=== PATIENT | female | born 1975 | race Caucasian/White ===

== ENCOUNTER 2024-10-07 16:32 | Emergency (ER) | payer MEDICARE ==
[~2024-10-07] VITALS: Ht 177.8 cm; Wt 81.6 kg
--- NOTE | 2024-10-07 17:17 | HMCIMG ---
Exam Type: FOOT COMP 3+VWS RT Clinical Information: pain Comparison: None Findings: The bone examination is unremarkable. No fractures or dislocations are seen. No radiopaque foreign bodies are noted. Soft tissues are preserved. IMPRESSION: Normal examination.
--- NOTE | 2024-10-07 17:24 | HMCIMG ---
Exam Type: ANKLE COMP 3VWS RT Clinical Information: fracture Comparison: None Findings and impression: Medial malleolar fracture is seen with mild displacement and rotation and overlying soft tissue swelling. No other abnormalities are noted.
[2024-10-07] MEDS ORDERED: KETO10TA2 PO (17:31)
--- NOTE | 2024-10-07 17:44 | ERN ---
General Chief Complaint: FOOT INJURY/PAIN Stated Complaint: RIGHT FOOT PAIN Time Seen by MD: 17:05 Time Seen by Midlevel: 17:05 Source: patient History of Present Illness Initial Comments This is a 49-year-old female presenting to the emergency department with right ankle pain. Patient states that last night she took a wrong step and fell backwards from the last step of her stairs. Denies any head injury or loss of consciousness. She noticed an increase in swelling and pain to the area so she decided to report to the ER today. No other complaints reported at this time Allergies: Coded Allergies: Sulfa (Sulfonamide Antibiotics) (Unverified Allergy, Unknown, 10/07/24) ibuprofen (Unverified Allergy, Unknown, 10/07/24) Home Meds Active Scripts Ketorolac Tromethamine (Ketorolac Tromethamine) 10 Mg Tablet, 1 TAB PO TID for pain for 5 Days, #15 TAB 0 Refills Prov:ENRIQUE JOHNSTON 10/07/24 Past Medical History Past Medical History: Other Medical History Other: BACK PROBLEMS Past Surgical History: Other Surgical History Other: BACK SURGERY, NASAL SURGERY ROS Dictation CONSTITUTIONAL: Negative except for HPI HEAD/FACE: Negative except for HPI EENT: Negative except for HPI RESPIRATORY: Negative except for HPI GASTROINTESTINAL/ABDOMINAL: Negative except for HPI GENITOURINARY: Negative except for HPI MUSCULOSKELETAL: Negative except for HPI INTEGUMENTARY: Negative except for HPI NEUROLOGICAL/PSYCH: Negative except for HPI HEMATOLOGIC/LYMPHATIC: Negative except for HPI All Systems Negative, Except as noted above. 13 point review of systems assessed and all negative except for above. Physical Exam Physical Exam Dictation PHYSICAL EXAM: GENERAL: alert,, awake oriented x 3 HEENT: EOMI, Sclera non icteric, moist mucosa NECK: Supple, no JVD, trachea midline LUNGS: Clear breath sounds bilaterally. No wheezes HEART: Regular rate and rhythm. Normal S1 and S2, without murmurs ABD: Abdomen soft, nontender. Bowel sounds present EXT: Tenderness over the right medial malleolus, full range motion of all five digits of the right foot, 2+ DP, PT pulses, sensation is intact, there was normal capillary refill of less than 2 seconds NEURO: Alert and oriented to person, follows commands MDM MDM: 49-year-old female presenting to the ER status post mechanical ground level fall. X-ray of the right ankle reveals a medial malleolar fracture. This was discussed with the patient. She was requesting a Toradol injection. I discussed an allergy listed in her chart of ibuprofen however she states she only gets small amounts of diarrhea with this medication. She does report taking ketorolac in the past and his agreeable with the Toradol injection in the ER. She was also requesting a prescription for Toradol. The patient will be splinted with a posterior long leg splint with stirrup. The right lower extremity is neurovascularly intact. Patient was advised to follow up with clinical pharmacy specialist outpatient within the next 24-48 hours and she agrees. All questions have been answered Differential diagnosis: Fracture, dislocation, contusion, sprain There are no social concerns with this patient. Prescription drug management Prescriptions will include: Toradol Medical management and examination interpretation discussions were had by me with other qualified healthcare professionals as indicated for the patient's care. ED Course Orders Procedure Category Date Status Time Foot Comp 3+Vws Rt RAD 10/07/24 Resulted 16:36 Ankle Comp 3vws Rt RAD 10/07/24 Resulted 17:05 *Nursing CPOE 10/07/24 Transmitted Communication: 17:22 Ketorolac PHA 10/07/24 Complete Tromethamine 30mg/Ml 17:30 Current Medications Medications (Trade) Dose Ordered Sig/Michelle Route PRN Reason Start Time Stop Time Status Last Admin Dose Admin Ketorolac Tromethamine (toRADol) 30 mg ONCE ONCE IM 10/07/24 17:30 10/07/24 17:31 DC Vital Signs Date Time Temp Pulse Resp B/P (MAP) Pulse Ox O2 Delivery O2 Flow Rate FiO2 10/07/24 16:33 98.4 98 18 143/89 99 Room Air [place] [address] [address] IMAGING REPORT Signed PATIENT: ADELA MALIN MR#: [id number] : 1975 SEX: F AGE: 49 LOCATION: [facility] ORDER 04 STATUS: REG ER REPORT#: [id number] SERVICE 04 REASON: fracture ORDERING PHYSICIAN: YESENIA BACH DO PROCEDURE: [id number] - ANKLE COMP 3VWS RT Exam Type: ANKLE COMP 3VWS RT Clinical Information: fracture Comparison: None Findings and impression: Medial malleolar fracture is seen with mild displacement and rotation and overlying soft tissue swelling. No other abnormalities are noted. DICTATED BY: BLAYNE CAR MD DATE: 10/07/241720 ELECTRONICALLY SIGNED BY: BLAYNE CAR MD DATE: 10/07/241723 [place] [address] [id number] IMAGING REPORT Signed PATIENT: ADELA MALIN MR#: [id number] : 1975 SEX: F AGE: 49 LOCATION: [facility] ORDER 36 STATUS: REG ER REPORT#: [id number] SERVICE 35 REASON: pain ORDERING PHYSICIAN: YESENIA BACH DO PROCEDURE: FT 3VW RT - FOOT COMP 3+VWS RT Exam Type: FOOT COMP 3+VWS RT Clinical Information: pain Comparison: None Findings: The bone examination is unremarkable. No fractures or dislocations are seen. No radiopaque foreign bodies are noted. Soft tissues are preserved. IMPRESSION: Normal examination. DICTATED BY: BLAYNE CAR MD DATE: 10/07/241710 ELECTRONICALLY SIGNED BY: BLAYNE CAR MD DATE: 10/07/241716 DX & DISP Disposition: Discharge Departure Impression: Primary Impression: Medial malleolar fracture Condition: Stable Scripts Ketorolac Tromethamine (Ketorolac Tromethamine) 10 Mg Tablet 1 TAB PO TID for pain for 5 Days, #15 TAB 0 Refills Prov: ENRIQUE JOHNSTON 10/07/24 Additional Instructions: Your x-ray reveals a fracture of your right ankle. Your ankle was immobilized in the emergency department. You will need to see an clinical pharmacy specialist outpatient. I have given you a referral to Dr. Cage. Please follow up as soon as possible preferably any time from Friday through Friday from 8:00 a.m. to 11:00 a.m.. If you develop any new or worsening symptoms please report to the ER for further evaluation. Referrals: SELF,REFERRAL (PCP) KIRBY CAGE MD Time of Disposition: 17:29 I have reviewed the case, and I agree with, Diagnosis and Plan I performed the substantive portion of the visit. I have reviewed and personally made and approve the management plan that is documented in the note by myself or the CARLOS. I acknowledge for responsibility for the patient's management plan. ENRIQUE JOHNSTON Oct 07, 2024 17:44
--- NOTE | 2024-10-07 19:00 | NUR ---
splint paced as pa requested
[2024-10-07] MEDS: ketOROlac 30MG VIAL (30MG/ML) IM ONE (19:01)
[2024-10-07 19:08] VITALS: BP 143/85; PULSE 98; RESP 15; TEMP 98.4; O2SAT 98
== END 2024-10-07 19:27 | disposition home or self-care (01) ==
LOC: EDH 16:32
DX: S82.51XA Displaced fracture of medial malleolus of right tibia, initial encounter for closed fracture (principal); Z88.2 Allergy status to sulfonamides; Z88.6 Allergy status to analgesic agent; W18.39XA Other fall on same level, initial encounter; Y93.89 Activity, other specified; Y92.89 Other specified places as the place of occurrence of the external cause; Y99.8 Other external cause status
CPT/HCPCS: 99284; 29505; 73610; 73630; 96372; J1885